=== PATIENT | female | born 1985 | race Caucasian/White ===

== ENCOUNTER 2019-04-21 22:36 | Emergency (ER) | payer OTHER ==
[~2019-04-21] VITALS: Ht 175.3 cm; Wt 136.1 kg
[~2019-04-21 22:36] MED LIST: ABAC300; DOCU100 PO; ONDA4ODT MM; Verotin-Gr Cap1 EACH PO
== END 2019-04-22 00:10 | disposition home or self-care (01) ==
LOC: ER 22:36
DX: M79.662 Pain in left lower leg (principal); Z88.5 Allergy status to narcotic agent; Z87.891 Personal history of nicotine dependence
CPT/HCPCS: 93971; 99283-25

== ENCOUNTER → 2022-08-13 | Outpatient (CLI) | payer OTHER | LOC: LAB SHORT 16:40 → LAB 16:40 | DX: J02.9 Acute pharyngitis, unspecified (principal) | CPT/HCPCS: 87081 ==